=== PATIENT | male | born 1965 | race Caucasian/White ===

== ENCOUNTER 2020-09-29 11:17 | Emergency (ER) | payer OTHER ==
[2020-09-29 11:31] VITALS: BP 112/80; TEMP 99.3; BMI 32.3
[2020-09-29 11:32] VITALS: PULSE 94
== END 2020-09-29 12:50 | disposition home or self-care (01) ==
LOC: FER 11:17
DX: U07.1 COVID-19 (principal)
CPT/HCPCS: 71045-TC-FY; 99284-25; C9803; U0003

== ENCOUNTER 2020-10-13 14:39 | Emergency (ER) | payer OTHER ==
[2020-10-13 14:57] VITALS: BP 130/98; PULSE 92; TEMP 99.6; BMI 31.5
[2020-10-13] MEDS ORDERED: ALBUTEROL SO4 HFA INHALER IH ONE ×2 (15:36→15:40)
[2020-10-13 16:27] LABS: EOS % 0.7 % (0-4.5); HEMATOCRIT 45.9 % (35.4-49); HEMOGLOBIN 15.5 GM/dl (11.7-16.9); LYMPH % 23.2 % (8-40); MCH 29.4 pg (25.7-33.7); MCHC 33.7 g/dl (32.0-35.9); MEAN CELL VOLUME 87.3 fl (80-96); MONO % 7.8 % (3.8-10.2); NEUT % 67.3 % (42.8-82.8); PLATELET COUNT 389 K/MM3 (134-434); RBC 5.26 M/mm3 (4.00-5.60); RDW 12.1 % (11.9-15.9); WHITE BLOOD COUNT 12.6 K/mm3 (4.0-10.8)
[2020-10-13 16:28] LABS: ALBUMIN 3.9 g/dl (3.4-5.0); BILIRUBIN,TOTAL 1.1 mg/dl (0.2-1); CALCIUM 9.5 mg/dl (8.5-10); CREATININE 1.1 mg/dl (0.55-1.3); POTASSIUM 4.3 mmol/L (3.5-5.1); TOT PROT 7.5 g/dl (6.4-8.2)
== END 2020-10-13 18:54 | disposition home or self-care (01) ==
LOC: FER 14:39
PROC: 3E0F7GC Introduction of Other Therapeutic Substance into Respiratory Tract, Via Natural or Artificial Opening (ICD-10-PCS; principal; 2020-10-13)
DX: R06.02 Shortness of breath (principal)
CPT/HCPCS: 36415; 71045-TC-FY; 71275-TC; 80053; 82550; 84484; 85025; 85379; 93005; 99285-25; Q9967